=== PATIENT | female | born 1995 | race African-American/Black ===

== ENCOUNTER 2019-03-18 15:59 | Emergency (ER) | payer OTHER ==
[~2019-03-18] VITALS: Ht 167.6 cm; Wt 70.3 kg
[~2019-03-18 15:59] MED LIST: PRENATAL PO
[2019-03-18 17:13] LABS: URINE BILIRUBIN NEGATIVE (Negative); URINE BLOOD NEGATIVE (Negative); URINE CLARITY CLEAR; URINE COLOR YELLOW; URINE GLUCOSE-RANDOM* NEGATIVE (Negative); URINE KETONES 1+ (Negative); URINE LEUKOCYTES-REFLEX NEGATIVE (Negative); URINE NITRITE-REFLEX NEGATIVE (Negative); URINE PROTEIN (DIPSTICK) NEGATIVE (Negative); URINE SPECIFIC GRAVITY 1.025 (1.005-1.035); URINE UROBILINOGEN 0.2 E.U./dl (0.2-1.0)
[2019-03-18] MEDS ORDERED: PRENATA CHEWAB1 EACH PO (18:21)
[2019-03-18 18:46] VITALS: BP 142/66
== END 2019-03-18 18:00 | disposition home or self-care (01) ==
LOC: ER 15:59
PROVIDERS: Nurse Practitioner Family
DX: O21.8 Other vomiting complicating pregnancy (principal); Z3A.01 Less than 8 weeks gestation of pregnancy